=== PATIENT | male | born 1995 | race Caucasian/White ===

== ENCOUNTER 2019-08-05 19:32 | Observation (INO) ==
[2019-08-05] MEDS ORDERED: SODIUM CHLORIDE 0.9% 1000ML 1,000 ML IV ONE (19:40)
[2019-08-05] MEDS ORDERED: KETOROLAC TROMETHAMINE 15 MG/ML VIAL IV STA (19:51)
[2019-08-05 20:26] LABS: Basophils # (auto) 0.03 K/uL (0-0.2); Basophils % (auto) 0.2 %; Eosinophils # (auto) 0.03 K/uL (0-0.5); Eosinophils % (auto) 0.2 %; Hematocrit (blood only) 44.5 % (42-52); Hemoglobin 16.1 g/dL (14.0-18.0); Immature Granulocytes # (auto) 0.04 K/uL (0.00-0.02); Immature Granulocytes % (auto) 0.3 %; Lymphocytes # (auto) 1.28 K/uL (1.2-3.4); Lymphocytes % (auto) 8.7 %; Mean Corpuscular Hemoglobin 31.2 pg (25-34); Mean Corpuscular Hgb Conc 36.2 g/dL (32-36); Mean Corpuscular Volume 86.2 fL (80-100); Mean Platelet Volume 9.1 fL (7.4-10.4); Monocytes % (auto) 7.5 %; Neutrophils # (auto) 12.16 K/uL (1.4-6.5); Neutrophils % (auto) 83.1 %; Platelet Count 259 K/uL (130-400); RDW Coefficient of Variation 12.6 % (11.5-14.5); RDW Standard Deviation 40.1 fL (36.4-46.3); Red Blood Count 5.16 M/uL (4.7-6.1); White Blood Count 14.64 K/uL (4.8-10.8)
[2019-08-05 20:27] LABS: iSTAT Creatinine 0.7 mg/dl (0.6-1.3); iSTAT Hemoglobin 15.6 g/dl (14.0-18.0); iSTAT Ionized Calcium 1.14 mmol/l (1.12-1.32); iSTAT Potassium 3.5 mEq/L (3.3-5.0)
[2019-08-05 20:31] LABS: Albumin Level 4.6 gm/dl (3.4-5.0); BUN Creatinine Ratio 12.1 (10-20); Calcium 9.4 mg/dl (8.5-10.1); Creatinine Clr Calc Pharmacy 140.3 ml/min; Est GFR (African American) 143.7; Potassium 3.5 mmol/L (3.5-5.1)
[2019-08-05] MEDS ORDERED: IOVERSOL 100ml IV PRN (20:33)
[2019-08-05 20:34] LABS: Albumin Globulin Ratio 1.2 (0.9-2); Bilirubin,Total 1.4 mg/dl (0.2-1); Globulin 3.9 gm/dl (2.5-4.0); Total Protein 8.5 gm/dl (6.4-8.2)
--- NOTE | 2019-08-05 20:42 | CT Scan Report ---
CT abd pelvis IV con only CLINICAL HISTORY: RLQ pain, nausea, decreased appetite COMPARISON STUDY: None. TECHNIQUE: The patient was scanned in a dynamic helical fashion during intravenous administration of 93 cc of Optiray 320. A dose lowering technique was utilized adhering to the principles of ALARA. CT DOSE: 274.09 mGy.cm FINDINGS: Lower chest: The heart is normal in size and configuration, without pericardial effusion. The lung ba ses and pleural spaces are clear. Liver: The contrast-enhanced liver is normal in size, contour, and attenuation. There is no intrahepa tic biliary ductal dilatation. The hepatic veins and portal veins are patent. Gallbladder: Unremarkable. Spleen: Normal in size and attenuation. Pancreas: Unremarkable. Adrenal glands: Unremarkable. Kidneys: There is symmetric renal cortical enhancement. The kidneys are normal in size without hydron ephrosis. Bowel: There are no transition zones to indicate bowel obstruction. There is no evidence of acute div erticulitis. There is a dilated fluid-filled appendix with periappendiceal stranding, and trace peria ppendiceal fluid.. The findings are indicative of acute appendicitis. Peritoneum: There is trace free pelvic fluid. There is no free intraperitoneal air. Vasculature: The abdominal aorta is normal in course and caliber. Adenopathy: None. Pelvic viscera: The bladder, and pelvic viscera are unremarkable. Skeletal structures: No destructive osseous lesions are seen. IMPRESSION: 1. Dilated fluid-filled appendix with periappendiceal stranding and trace periappendiceal fluid. The findings are indicative of acute appendicitis and surgical consultation is recommended. Electronically signed by: Leroy Springer M.D. 08/05/2019 8:39 PM
[2019-08-05 21:03] LABS: Appearance Urine Clear (Clear); Bilirubin Urine Negative (Negative); Blood Urine Negative (Negative); Color Urine Yellow; Glucose Urine UA Negative (Negative); Ketones Urine Negative (Negative); Leukocyte Esterase Urine Negative (Negative); Nitrite Urine Negative (Negative); Protein Urine Negative (Negative); Specific Gravity Urine 1.015 (1.000-1.030); Urobilinogen Urine Negative (Negative); pH Urine 8.5 (4.5-7.5)
[2019-08-05] MEDS ORDERED: cefOXitin 2,000 MG/60 ML BAG IV STA (21:12)
--- NOTE | 2019-08-05 21:33 | Surgery Progress Note ---
Date of Service August 05, 2019 Assessment & Plan (1) Acute appendicitis with localized peritonitis: 23 y/o male with acute uncomplicated appendicitis. Last ate solid food just prior to arrival, anesthesia recommends waiting 8 hours. Plan to admit patient for observation, plan for appendectomy tomorrow. Patient was not examined, full consult to follow. admit to med surg for observation cefoxitin q6h npo ivf iv acetaminophen, morphine prn pain discussed with ed provider, anesthesia, and assistant professor of nursing Results & Data Vital Signs (Past 12 Hours) Vital Signs Temp Pulse Pulse Resp BP BP Pulse Ox 08/05/19 19:55 72 13 126/73 98 08/05/19 19:35 37.0 C 83 18 142/81 H 100 PG Care Time/CCT Total # of Minutes Spent Total Time Spent with Patient: Total time spent is greater than 50% in coordination of care (as documented) at patient's floor/unit and/or counseling patient:
[2019-08-05] MEDS ORDERED: ONDANSETRON INJ 2 MG/ML 2 ML VIAL IV PRN (22:13)
[2019-08-05] MEDS ORDERED: MoRPHine SULFATE 4 MG/ML 1 ML CARP\\VIAL IV PRN (22:13)
[2019-08-05] MEDS ORDERED: DiphenhydrAMINE HCL 50 MG/ML VIAL IV PRN (22:13)
[2019-08-05] MEDS ORDERED: ACETAMINOPHEN 1,000 MG/100 ML VIAL IV PRN (22:13)
[2019-08-05] MEDS ORDERED: MoRPHine SULFATE 2 MG/ML CARP IV PRN (22:13)
--- NOTE | 2019-08-05 23:15 | Emergency Department Note ---
Entered by Rosales James acting as a scribe for History of Present Illness General Chief complaint: Abdominal Pain Stated complaint: RIGHT SIDED ABD PAIN Time Seen by Provider: 08/05/19 19:40 Source: patient History of Present Illness Onset (ago): hour(s) (this morning) Location: abdomen Severity: severe Pain Consistency: + constant Maximum Pain Intensity: 2 Associated symptoms: + denies other symptoms (vomiting, fevers) and + other (decreased appetite, intermittent nausea) The patient is a 23 y/o male who presents to the ED w/ CC of constant abdominal pain beginning this morning. The patient states when his symptoms started, they were severe and on his left upper abdomen. He reports he took a nap today, and when he woke up his symptoms were better but had moved to his right lower abdomen. The patient notes he went to [employer] today and was found to have microscopic blood in his urine. He reports he was told to come to the ED for further testing. He states he woke up today and felt constipated and bloated. The patient reports he normally moves his bowels everyday, but he has yet to move his bowels today. He notes he has not had much of an appetite today, and he has been intermittently nauseous. The patient states he still has his appendix and denies a history of kidney stones. He also denies fevers, vomiting, and current nausea. The patient reports he does not take prescribed medication daily, and he takes a vitamin supplement daily. Home Medications Home Medications Medication Instructions Recorded Confirmed Type multivitamin 1 tab PO DAILY 08/05/19 08/05/19 History salicylic acid [Acne Wash] 1 applic TOPICAL DAILY 08/05/19 08/05/19 History Allergies Allergy/AdvReac Type Severity Reaction Status Date / Time No Known Allergies Allergy Verified 08/05/19 19:55 Past Med/Surg History Medical History No pertinent past medical history Surgical History No pertinent past surgical history Family History Other No pertinent family history Social History Preferred Language: Azeri Communication Ability: Effective [employer] Required: No Beliefs That Will Affect Care: None Current Living Situation: Other Current Living Situation Comment: with brother Feels Safe at Home: No Safety Concerns: Feels Safe At This Time Smoking Status: Never smoker Hx Alcohol Use: Yes Alcohol type: beer, wine and hard liquor Hx Substance Use: No Review of Systems See HPI for pertinent positives & negatives. and A total of 10 systems reviewed and were otherwise negative Physical Exam Vital Signs Vital Signs - 24 hr 08/05/19 19:35 08/05/19 19:55 Temperature 37.0 C Temperature Source Oral Pulse Rate 83 Pulse Rate [Apical] 72 Pulse Strength Normal Respiratory Rate 18 13 Respiratory Effort / Characteristics Non-Labored Spontaneous Respiratory Depth Normal Respiratory Pattern Regular Blood Pressure 142/81 H Blood Pressure [Left Arm] 126/73 Blood Pressure Mean 101 Blood Pressure Mean [Left Arm] 90 Blood Pressure Position Sitting Pulse Oximetry 100 98 Oxygen Delivery Method Room Air Room Air Sepsis Recent Fever Within 48 Hours No Sepsis New/Unexplained Change in Mental Status No Sepsis Action Taken by Nursing No Action Required GENERAL: Awake, alert, well-appearing, in no distress HENT: Normocephalic, atraumatic. Oropharynx with dry mucous membranes and otherwise unremarkable. EYES: Normal conjunctiva. Sclera non-icteric. NECK: Supple. No nuchal rigidity. FROM. No JVD. RESPIRATORY: CTAB CARDIAC: Regular rate, normal rhythm. Extremities warm and well perfused. Pulses equal. ABDOMEN: Soft, non-distended. Mild right lower quadrant tenderness to palpation over McBurney's point. No rebound or guarding. No masses. RECTAL: Deferred. MUSCULOSKELETAL: Chest examination reveals no tenderness. The back is symmetrical on inspection without obvious abnormality. There is no CVA tenderness to palpation. No joint edema. LOWER EXTREMITIES: Calves are equal size bilaterally and non-tender. No edema. No discoloration. NEURO: Normal sensorium. No sensory or motor deficits noted. SKIN: No rash or jaundice noted. Course Course 1944: Past medical records reviewed. The patient was evaluated in room C03. A complete history and physical exam was performed. 2102: I discussed the patient's case with Dr. Leal, General Surgery. 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 2110: Upon reevaluation, the patient is resting comfortably. I discussed laboratory and radiographic results with him. He verbalized agreement of the treatment plan. The patient will be evaluated for further management and care. Administered Medications Discontinued Medications Sodium Chloride (Nss 1000ml) 1,000 mls @ 999 mls/hr IV .Q1H1M ONE Stop: 08/05/19 20:40 Last Infusion: 08/05/19 21:06 Dose: 0 mls/hr Documented by: [id number] Admin: 08/05/19 20:05 Dose: 999 mls/hr Documented by: [id number] Cefoxitin Sodium (Mefoxin) 2,000 mg in 60 mls @ 100 mls/hr IV NOW STA Stop: 08/05/19 21:47 Last Infusion: 08/05/19 22:17 Dose: 0 mls/hr Documented by: [id number] Admin: 08/05/19 21:31 Dose: 100 mls/hr Documented by: [id number] Ioversol (Optiray 320 100ml) 93 ml IV ONCE PRN PRN Reason: Interaction Checking Stop: 08/09/19 20:32 Last Admin: 08/05/19 20:34 Dose: 93 ml Documented by: [id number] Ketorolac Tromethamine (Toradol) 15 mg IV NOW STA Stop: 08/05/19 19:52 Last Admin: 08/05/19 22:17 Dose: Not Given Documented by: [id number] Medical Decision Making Differential Diagnosis Differential diagnoses includes but is not limited to gastritis, peptic ulcer disease, GERD, gallbladder disease, pancreatitis, small bowel obstruction, acute coronary syndrome, pericarditis, ischemic bowel, irritable bowel disease, irritable bowel syndrome, appendicitis, diverticulitis, malignancy, hernia, urinary tract infection, torsion, perforation, trauma, infectious. Medical Records Attestation: I reviewed the patient's medical records. Home Medications Current Medication List: was personally reviewed by me Laboratory Data Attestation: I reviewed the patient's lab results. Result diagrams: 08/05/19 20:04 08/05/19 20:04 Lab Results 08/05/19 08/05/19 08/05/19 Range/Units 20:04 20:04 20:12 WBC 14.64 H (4.8-10.8) K/uL RBC 5.16 (4.7-6.1) M/uL Hgb 16.1 (14.0-18.0) g/dL POC Hgb 15.6 (14.0-18.0) g/dl Hct 44.5 (42-52) % POC Hct 46 (42-52) % MCV 86.2 (80-100) fL MCH 31.2 (25-34) pg MCHC 36.2 H (32-36) g/dL RDW Std Deviation 40.1 (36.4-46.3) fL RDW Coeff of Jennifer 12.6 (11.5-14.5) % Plt Count 259 (130-400) K/uL MPV 9.1 (7.4-10.4) fL Immature Gran % (Auto) 0.3 % Neut % (Auto) 83.1 % Lymph % (Auto) 8.7 % [place] % (Auto) 7.5 % Eos % (Auto) 0.2 % Baso % (Auto) 0.2 % Immature Gran # (Auto) 0.04 H (0.00-0.02) K/uL Neut # (Auto) 12.16 H (1.4-6.5) K/uL Lymph # (Auto) 1.28 (1.2-3.4) K/uL [place] # (Auto) 1.10 H (0.11-0.59) K/uL Eos # (Auto) 0.03 (0-0.5) K/uL Baso # (Auto) 0.03 (0-0.2) K/uL POC Sodium 141 (135-144) mEq/L Sodium 139 (136-145) mmol/L POC Potassium 3.5 (3.3-5.0) mEq/L Potassium 3.5 (3.5-5.1) mmol/L POC Chloride 103 (101-112) mEq/L Chloride 105 (98-107) mmol/L Carbon Dioxide 27 (21-32) mmol/L POC Total CO2 26 (24-31) mEq/l Anion Gap 8.0 (3-11) POC Anion Gap 17.0 (16-25) mmol/L POC BUN 10 (7-18) mg/dl BUN 10 (7-18) mg/dl Creatinine 0.86 (0.6-1.4) mg/dl POC Creatinine 0.7 (0.6-1.3) mg/dl Est Cr Clr Drug Dosing 140.3 ml/min Est GFR ( Amer) 143.7 Est GFR (Non-Af Amer) 124.0 BUN/Creatinine Ratio 12.1 (10-20) Glucose 93 (70-99) mg/dl POC Glucose (other) 94 (70-99) mg/dl Calcium 9.4 (8.5-10.1) mg/dl POC Ioniz Calcium [place] 1.14 (1.12-1.32) mmol/l Total Bilirubin 1.4 H (0.2-1) mg/dl AST 15 (15-37) U/L ALT 16 (12-78) U/L Alkaline Phosphatase 75 (45-117) U/L Total Protein 8.5 H (6.4-8.2) gm/dl Albumin 4.6 (3.4-5.0) gm/dl Globulin 3.9 (2.5-4.0) gm/dl Albumin/Globulin Ratio 1.2 (0.9-2) Lipase 44 L (73-393) U/L Imaging Data Radiologist's Impression: Radiology results as stated below per my review and the radiologist's interpretation: CT abd pelvis IV con only CLINICAL HISTORY: RLQ pain, nausea, decreased appetite COMPARISON STUDY: None. TECHNIQUE: The patient was scanned in a dynamic helical fashion during intraveno us administration of 93 cc of Optiray 320. A dose lowering technique was utilized adhering to the principles of ALARA. CT DOSE: 274.09 mGy.cm FINDINGS: Lower chest: The heart is normal in size and configuration, without pericardial effusion. The lung bases and pleural spaces are clear. Liver: The contrast-enhanced liver is normal in size, contour, and attenuation. There is no intrahepatic biliary ductal dilatation. The hepatic veins and portal veins are patent. Gallbladder: Unremarkable. Spleen: Normal in size and attenuation. Pancreas: Unremarkable. Adrenal glands: Unremarkable. Kidneys: There is symmetric renal cortical enhancement. The kidneys are normal in size without hydronephrosis. Bowel: There are no transition zones to indicate bowel obstruction. There is no evidence of acute diverticulitis. There is a dilated fluid-filled appendix with periappendiceal stranding, and trace periappendiceal fluid.. The findings are indicative of acute appendicitis. Peritoneum: There is trace free pelvic fluid. There is no free intraperitoneal air. Vasculature: The abdominal aorta is normal in course and caliber. Adenopathy: None. Pelvic viscera: The bladder, and pelvic viscera are unremarkable. Skeletal structures: No destructive osseous lesions are seen. IMPRESSION: 1. Dilated fluid-filled appendix with periappendiceal stranding and trace periappendiceal fluid. The findings are indicative of acute appendicitis and surgical consultation is recommended. Electronically signed by: Leroy Springer M.D. 08/05/2019 8:39 PM Blood Pressure Blood Pressure Findings: Normal blood pressure Blood Pressure Disposition: did not require urgent referral MDM Narrative The patient is a pleasant 23-year-old gentleman who presents emergency department with worsening right lower quadrant pain that began today but initially presented as generalized abdominal pain and periumbilical bloating that worsened throughout the day per hpi. Patient reports intermittent nausea and decreased appetite throughout the day. Denies any fevers or vomiting. Patient was seen in urgent care and referred to the emergency department. On arrival the patient is no acute distress, afebrile stable vital signs. On exam patient has mild right lower quadrant tenderness over McBurney's point. There is no guarding or rebound. WBC 14.6. With neutrophil predominance. Otherwise H/H and platelets within normal limits. Chemistry without acidosis. Elect lites and LFTs unremarkable. UA negative for infection. CT abdomen pelvis was performed and demonstrated dilated fluid-filled appendix with periappendiceal stranding and trace periappendiceal fluid, which is suggestive of acute appendicitis. Case was discussed with Dr. Leal, general surgery on-call. Given the patient ate solid foods in the form of chickpea crisps just prior to arrival likely will admit the patient for plan for OR in the morning. Patient was ordered for IV cefoxitin. Patient was updated on plan and he was agreeable. Impression & Plan Acute appendicitis, Leukocytosis, Right lower quadrant abdominal pain Discharge Plan Visit Data *Final* Discharge Date/Time: 08/05/19 21:46 Chief Complaint: Abdominal Pain Stated Complaint: RIGHT SIDED ABD PAIN ED Provider: Deepak Hylton Discharge Problem: Acute appendicitis, Leukocytosis, Right lower quadrant abdominal pain Patient Disposition: Admitted As Inpatient Discharge Instructions Interventions: ED Discharge Assessment Last Done: 08/05/19 21:46 Discharge Problem: Acute appendicitis Qualifiers: Acute appendicitis type: unspecified acute appendicitis type Qualified Code(s): K35.80 - Unspecified acute appendicitis The scribe's documentation has been prepared under my direction and personally reviewed by me in its entirety. I confirm that the note above accurately reflects all work, treatment, procedures, and medical decision making performed by me.
[2019-08-05] MEDS: LACTATED RINGER'S 1,000 ML IV SCH (23:25)
[2019-08-06] MEDS ORDERED: cefOXitin 2,000 MG in DEXTROSE 5% 50 ML IV SCH (04:00)
[2019-08-06] MEDS: LACTATED RINGER'S 1,000 ML IV SCH (04:59)
[2019-08-06] MEDS ORDERED: ONDANSETRON INJ 2 MG/ML 2 ML VIAL ONE (06:46)
[2019-08-06] MEDS ORDERED: PROPOFOL IV EMULSION 10 MG/ML 20 ML VIAL IV ONE (06:46)
[2019-08-06] MEDS ORDERED: LIDOCAINE HCL 2% 2 ML VIAL/AMP(20MG/ML) INFIL ONE (06:46)
[2019-08-06] MEDS ORDERED: LARYING-O-JET KIT (LTA) ONE (06:46)
[2019-08-06] MEDS ORDERED: DEXAMETHASONE SOD INJ 4 MG/ML VIAL ONE (06:46)
[2019-08-06] MEDS ORDERED: ROCURONIUM BROMIDE 10 MG/ML 5 ML VIAL ONE (06:46)
[2019-08-06] MEDS ORDERED: NEOSTIGMINE METHYLSULFATE 5 MG/5 ML SYR ONE (06:47)
[2019-08-06] MEDS ORDERED: MIDAZOLAM HCL 1 MG/ML 2ML VIAL ONE (06:47)
[2019-08-06] MEDS ORDERED: GLYCOPYRROLATE 0.2 MG/ML VIAL ONE (06:47)
[2019-08-06] MEDS ORDERED: fentaNYL citrate 100 MCG/2 ML VIAL ONE (06:47)
[2019-08-06] MEDS ORDERED: BUPIVACAINE 0.5 % 5 MG/1 ML MPF 30ML VIAL ONE (07:00)
[2019-08-06] MEDS ORDERED: fentaNYL citrate 100 MCG/2 ML VIAL IV PRN (07:01)
[2019-08-06] MEDS ORDERED: ePHEDrine sulfate 50 MG/ML AMP IV PRN (07:01)
[2019-08-06] MEDS ORDERED: ONDANSETRON INJ 2 MG/ML 2 ML VIAL IV PRN (07:01)
[2019-08-06] MEDS ORDERED: HYDROmorphone INJ 1 MG/ML SYRINGE IV PRN (07:01)
[2019-08-06] MEDS ORDERED: ATROPINE SULFATE 0.1 MG/ML 10ML SYR IV PRN (07:01)
--- NOTE | 2019-08-06 07:11 | Anesthesiology Consultation ---
Date of Service August 06, 2019 Assessment & Plan (1) Encounter for pre-operative examination: Chart Review Chart Review: Acceptable Risk for Surgery and Patient NOT seen in Pre Admission Testing Consults Requested none History Surgery Operation Date: 08/06/19 07:15 Proposed Procedures p Laparoscopic Appendectomy - Wilfred Leal DO, MARY Height/Weight Height: 5 ft 10 in Weight: 73.2 kg Allergies Allergy/AdvReac Type Severity Reaction Status Date / Time No Known Allergies Allergy Verified 08/05/19 19:55 Medications Home Medications Medication Instructions Recorded Confirmed Last Taken multivitamin 1 tab PO DAILY 08/05/19 08/05/19 08/05/19 salicylic acid [Acne Wash] 1 applic TOPICAL DAILY 08/05/19 08/05/19 Unknown Active Medications Generic Name Dose Route Start Last Admin Trade Name Freq PRN Reason Stop Dose Admin Cefoxitin Sodium 2,000 mg/ 60 mls @ 100 mls/hr 08/06/19 04:00 08/06/19 05:37 Dextrose IV 08/16/19 03:59 Infused Q6H NEHA Infusion Lactated Ringer's 1,000 mls @ 125 mls/hr 08/05/19 22:13 08/06/19 05:37 Lr IV 09/04/19 22:12 125 mls/hr .Q8H NEHA Infusion NPO Date Last Intake of Fluids: 08/05/19 Time Last Intake of Fluids: 20:00 Date Last Intake of Solids: 08/05/19 Time Last Intake of Solids: 20:00 Past Medical History Medical History No pertinent past medical history Exercise / Class Metabolic Activity II 4-5 Yardwork/Stairs/Walk up hill Past Family History Family History Other No pertinent family history Past Surgical History Surgical History No pertinent past surgical history Past Anesthesia History No Hx of Anesthesia Complications and No Family Hx of Anesthesia Complications History of PONV No Hx of PONV and No Hx of Motion Sickness Social History Smoking Status: Never smoker Hx Alcohol Use: Yes Alcohol type: beer, wine and hard liquor alcohol intake frequency: holidays/special occasions only Hx Substance Use: No Physical Exam Vital Signs Last Vital Signs Temp 37.1 C 08/06/19 06:45 Pulse 70 08/06/19 06:45 Resp 16 08/06/19 06:45 BP 109/66 08/06/19 06:45 Pulse Ox 97 08/06/19 06:45 Testing Laboratory Results 08/05/19 20:04 08/05/19 20:04 Urine Color Yellow 08/05/19 Unknown Urine Appearance Clear (Clear) 08/05/19 Unknown Urine pH 8.5 (4.5-7.5) H 08/05/19 Unknown Ur Specific [place] 1.015 (1.000-1.030) 08/05/19 Unknown Urine Protein Negative (Negative) 08/05/19 Unknown Urine Glucose (UA) Negative (Negative) 08/05/19 Unknown Urine Ketones Negative (Negative) 08/05/19 Unknown Urine Nitrite Negative (Negative) 08/05/19 Unknown Ur Leukocyte Esterase Negative (Negative) 08/05/19 Unknown 08/05/19 20:12 POC Glucose (other) 94
--- NOTE | 2019-08-06 07:34 | History & Physical Report ---
Date of Service August 06, 2019 Assessment & Plan (1) Acute appendicitis with localized peritonitis: 23-year-old male with acute nonperforated appendicitis Plan for laparoscopic appendectomy The risk of the procedure were discussed to include but not limited to bleeding, infection, open surgery, normal appendix, damage to surrounding structures, need for future or more extensive surgery, abscess formation, and the risk of anesthesia Patient is on antibiotics Potential discharge later this afternoon Wound care instructions and activity restrictions reviewed postoperatively The diagnosis, details of the procedure and recovery, and plan of care discussed the patient, all questions were answered, the patient expressed understanding and agrees with the plan of care as stated Present on Admission?: Yes History of Present Illness Primary Care Provider: NO PCP 23-year-old male presented overnight with periumbilical abdominal pain that migrated to the right lower quadrant. He was initially seen at urgent care and advised to report to the ER as they were concerned that it was appendicitis. On the way over he stopped and ate a bag of chips, and then presented to the emergency department where CT scan revealed a nonperforated appendicitis. Due to the fact that he had not been n.p.o. for greater than 6 hours, he was admitted overnight and placed on antibiotics. He is never had symptoms like this before. He notes that he still having tenderness in the right lower quadrant. No personal or family history of Crohn's or ulcerative colitis. Allergies Allergy/AdvReac Type Severity Reaction Status Date / Time No Known Allergies Allergy Verified 08/05/19 19:55 Home Medications Home Medications Medication Instructions Recorded Confirmed Type multivitamin 1 tab PO DAILY 08/05/19 08/05/19 History salicylic acid [Acne Wash] 1 applic TOPICAL DAILY 08/05/19 08/05/19 History Past Med/Surg History Medical History No pertinent past medical history Surgical History No pertinent past surgical history Family History Other No pertinent family history Social History Preferred Language: Kiswahili Communication Ability: Effective Refrigeration Lead Required: No Beliefs That Will Affect Care: None Current Living Situation: Other Current Living Situation Comment: with brother Feels Safe at Home: No Safety Concerns: Feels Safe At This Time Smoking Status: Never smoker Hx Alcohol Use: Yes Alcohol type: beer, wine and hard liquor Hx Substance Use: No Physical Exam Constitutional: WD/WN, vitals as above Eyes: PERRL, conjunctivae normal, anicteric sclerae ENMT: external ear and nose normal, oropharynx normal Neck: trachea midline, no thyromegaly Respiratory: normal respiratory effort, lungs clear to auscultation Cardiovascular: RRR, no murmur, no edema Gastrointestinal (Abdomen): Percussion/Palpation: + abdomen tender (Tenderness to palpation in the right lower quadrant with localized guarding), + guarding and abdomen soft; abdomen not rigid, no hepatosplenomegaly and no hernia Musculoskeletal: no cyanosis or clubbing, extremities motor strength 5/5 Skin: no rashes, warm and dry Neurologic: PERRL, EOMI, accommodation nl, no face palsy, no dysarthria Psychiatric: A+Ox3, euthymic affect Lymphatic: no cervical or axillary lymphadenopathy Results & Data Vital Signs (Past 12 Hours) Vital Signs Temp Pulse Pulse Resp BP BP Pulse Ox 08/06/19 06:45 37.1 C 70 16 109/66 97 08/05/19 21:48 37 C 72 16 135/78 97 08/05/19 21:30 71 16 118/63 99 08/05/19 19:55 72 13 126/73 98 08/05/19 19:35 37.0 C 83 18 142/81 H 100 Laboratory Results Laboratory Results - last 24 hr 08/05/19 08/05/19 08/05/19 20:04 20:04 20:12 WBC 14.64 H RBC 5.16 Hgb 16.1 POC Hgb 15.6 Hct 44.5 POC Hct 46 MCV 86.2 MCH 31.2 MCHC 36.2 H RDW Std Deviation 40.1 RDW Coeff of Jennifer 12.6 Plt Count 259 MPV 9.1 Immature Gran % (Auto) 0.3 Neut % (Auto) 83.1 Lymph % (Auto) 8.7 Cameron % (Auto) 7.5 Eos % (Auto) 0.2 Baso % (Auto) 0.2 Immature Gran # (Auto) 0.04 H Neut # (Auto) 12.16 H Lymph # (Auto) 1.28 Cameron # (Auto) 1.10 H Eos # (Auto) 0.03 Baso # (Auto) 0.03 POC Sodium 141 Sodium 139 POC Potassium 3.5 Potassium 3.5 POC Chloride 103 Chloride 105 Carbon Dioxide 27 POC Total CO2 26 Anion Gap 8.0 POC Anion Gap 17.0 POC BUN 10 BUN 10 Creatinine 0.86 POC Creatinine 0.7 Est Cr Clr Drug Dosing 140.3 Est GFR ( Amer) 143.7 Est GFR (Non-Af Amer) 124.0 BUN/Creatinine Ratio 12.1 Glucose 93 POC Glucose (other) 94 Calcium 9.4 POC Ioniz Calcium Tosha 1.14 Total Bilirubin 1.4 H AST 15 ALT 16 Alkaline Phosphatase 75 Total Protein 8.5 H Albumin 4.6 Globulin 3.9 Albumin/Globulin Ratio 1.2 Lipase 44 L Urine Color Urine Appearance Urine pH Ur Specific [place] Urine Protein Urine Glucose (UA) Urine Ketones Urine Blood Urine Nitrite Urine Bilirubin Urine Urobilinogen Ur Leukocyte Esterase 08/05/19 Unknown WBC RBC Hgb POC Hgb Hct POC Hct MCV MCH MCHC RDW Std Deviation RDW Coeff of Jennifer Plt Count MPV Immature Gran % (Auto) Neut % (Auto) Lymph % (Auto) Cameron % (Auto) Eos % (Auto) Baso % (Auto) Immature Gran # (Auto) Neut # (Auto) Lymph # (Auto) Cameron # (Auto) Eos # (Auto) Baso # (Auto) POC Sodium Sodium POC Potassium Potassium POC Chloride Chloride Carbon Dioxide POC Total CO2 Anion Gap POC Anion Gap POC BUN BUN Creatinine POC Creatinine Est Cr Clr Drug Dosing Est GFR ( Amer) Est GFR (Non-Af Amer) BUN/Creatinine Ratio Glucose POC Glucose (other) Calcium POC Ioniz Calcium Tosha Total Bilirubin AST ALT Alkaline Phosphatase Total Protein Albumin Globulin Albumin/Globulin Ratio Lipase Urine Color Yellow Urine Appearance Clear Urine pH 8.5 H Ur Specific [place] 1.015 Urine Protein Negative Urine Glucose (UA) Negative Urine Ketones Negative Urine Blood Negative Urine Nitrite Negative Urine Bilirubin Negative Urine Urobilinogen Negative Ur Leukocyte Esterase Negative Diagnostic Findings CT abd pelvis IV con only CLINICAL HISTORY: RLQ pain, nausea, decreased appetite COMPARISON STUDY: None. TECHNIQUE: The patient was scanned in a dynamic helical fashion during intravenous administration of 93 cc of Optiray 320. A dose lowering technique was utilized adhering to the principles of ALARA. CT DOSE: 274.09 mGy.cm FINDINGS: Lower chest: The heart is normal in size and configuration, without pericardial effusion. The lung bases and pleural spaces are clear. Liver: The contrast-enhanced liver is normal in size, contour, and attenuation. There is no intrahepatic biliary ductal dilatation. The hepatic veins and portal veins are patent. Gallbladder: Unremarkable. Spleen: Normal in size and attenuation. Pancreas: Unremarkable. Adrenal glands: Unremarkable. Kidneys: There is symmetric renal cortical enhancement. The kidneys are normal in size without hydronephrosis. Bowel: There are no transition zones to indicate bowel obstruction. There is no evidence of acute diverticulitis. There is a dilated fluid-filled appendix with periappendiceal stranding, and trace periappendiceal fluid.. The findings are indicative of acute appendicitis. Peritoneum: There is trace free pelvic fluid. There is no free intraperitoneal air. Vasculature: The abdominal aorta is normal in course and caliber. Adenopathy: None. Pelvic viscera: The bladder, and pelvic viscera are unremarkable. Skeletal structures: No destructive osseous lesions are seen. IMPRESSION: 1. Dilated fluid-filled appendix with periappendiceal stranding and trace periappendiceal fluid. The findings are indicative of acute appendicitis and surgical consultation is recommended. Code Status & VTE Plan VTE Prophylaxis Plan VTE Prophylaxis will be ordered: Yes PG Care Time/CCT Total # of Minutes Spent Total Time Spent with Patient: Total time spent is greater than 50% in coordination of care (as documented) at patient's floor/unit and/or counseling patient:
--- NOTE | 2019-08-06 08:25 | Operative Report ---
PG Post Operative Report Pre & Post Diagnosis Operation Date: 08/06/19 07:15 Pre-Op Diagnosis: Acute Appendicitis Post-Op Diagnosis: Acute Appendicitis I identified the patient and participated in the time-out.: Yes Procedure Operation Date: 08/06/19 07:15 Actual Procedures p Laparoscopic Appendectomy(Not Applicable) - Wilfred Leal DO, FACS Surgeon Wilfred Leal DO, FACS Senior Audit Manager Christin Meredith Estimated Blood Loss 3 Findings Consistent with Post-Op Diagnosis Acute, nonperforated appendicitis. Specimens Appendix Anesthesia Type General Complications none Disposition Accompanied Patient To Recovery: No Disposition: Recovery Room Indications 23-year-old male presents the emergency department yesterday with signs and symptoms of acute appendicitis. He was not n.p.o. therefore he was admitted and placed on antibiotics. Plan for laparoscopic appendectomy this morning. The risks of the procedure were discussed, all questions were answered, and the patient agreed to proceed with surgery as planned. Description of Procedure The patient was properly identified, consented, and taken to the operating room where he was placed in the supine position. General endotracheal anesthesia was induced. SCDs and a safety belt were placed. Preoperative antibiotics were administered. The patient's abdomen was prepped and draped in the standard sterile fashion. Surgical timeout was performed and all parties were in agreement that this was the correct patient and procedure to be performed and we continued as planned. A curvilinear infraumbilical incision was made with electrocautery and deepened down to the fascia with blunt dissection. The base of the umbilicus was grasped with a Missy and elevated towards the ceiling. An incision was made in the midline fascia with a knife and entry into the peritoneum was confirmed. Stay suture of 0 Vicryl was placed and a Loza trocar was inserted. The abdomen was insufflated with carbon dioxide which the patient tolerated without incident. The laparoscope was inserted and no damage from initial trocar placement was noted, no gross abnormalities were noted within the 4 quadrants the abdomen. 5 mm ports were then placed in the left lower quadrant with care not to damage the epigastric vessels, and in the suprapubic midline with care not to damage the bladder. The patient was placed in Trendelenburg position and rotated towards the left. The small bowel was swept away from the right lower quadrant. The cecum was grasped with an atraumatic grasper exposing the base of the appendix. The appendix was partially retrocecal. The appendix was moderate inflamed and there was no evidence of perforation. There was minimal reactive fluid in the pelvis. The white line of Toldt was mobilized with the harmonic scalpel. A window was created between the base of the appendix and the mesoappendix. A jacobson loaded endoscopic stapler was then used to divide the appendix at its base. The harmonic scalpel was then used to divide the mesoappendix. Hemostasis was good. The appendix was placed in an Endo Catch bag and removed through the umbilical port site. The right lower quadrant and pelvis was irrigated and hemostasis was found to be good. 5 mm trochars were removed under direct visualization and the abdomen was allowed to collapse. The umbilical port site fascia was closed with 0 Vicryl suture. The wound was irrigated, and the skin of all ports was closed with 4-0 Monocryl subcuticular sutures. Dermabond was placed over the wounds. The patient was extubated in the operating room and taken to the PACU where he recovered without apparent incident. All sponge, instrument and needle counts were correct at the conclusion of the procedure. The patient tolerated the procedure well. The physician's department assistant was present and scrubbed for the entire to the case. She was critical in positioning the patient, prepping and draping, retraction and exposure, driving the laparoscope, removal of the appendix, closure the incisions, and placement of the dressings. I attest to the content of the Intraoperative Record and any orders documented therein. Any exceptions are noted below.
[2019-08-06] MEDS ORDERED: OXYCODONE/ACETAMINOPHEN 5mg/325mg TAB PO PRN ×2 (09:41)
[2019-08-06] MEDS ORDERED: LACTATED RINGER'S 1,000 ML IV SCH (09:41)
[2019-08-06] MEDS ORDERED: cefOXitin 2,000 MG in DEXTROSE 5% 50 ML IV ONE (11:00)
--- NOTE | 2019-08-06 13:51 | Anesthesiology Progress Note ---
Date of Service August 06, 2019 Anesthesia Post Procedure Vital Signs Vital Signs: Temp Pulse Pulse Pulse Resp BP BP 08/06/19 12:37 36.6 C 80 16 167/76 H 08/06/19 11:38 79 16 124/67 08/06/19 10:34 64 16 120/71 08/06/19 10:06 65 16 116/74 08/06/19 09:44 36.7 C 58 L 16 112/73 08/06/19 09:20 36.7 C 62 18 110/68 08/06/19 09:10 63 14 115/67 08/06/19 09:00 55 L 13 115/73 08/06/19 08:50 54 L 10 L 111/72 08/06/19 08:44 36.0 C L 69 19 130/71 08/06/19 06:57 37.1 C 65 16 116/65 08/06/19 06:45 37.1 C 70 16 109/66 08/05/19 21:48 37 C 72 16 135/78 08/05/19 21:30 71 16 118/63 08/05/19 19:55 72 13 126/73 08/05/19 19:35 37.0 C 83 18 142/81 H Pulse Ox 08/06/19 12:37 98 08/06/19 11:38 98 08/06/19 10:34 93 08/06/19 10:06 93 08/06/19 09:44 100 08/06/19 09:20 100 08/06/19 09:10 98 08/06/19 09:00 100 08/06/19 08:50 100 08/06/19 08:44 100 08/06/19 06:57 99 08/06/19 06:45 97 08/05/19 21:48 97 08/05/19 21:30 99 08/05/19 19:55 98 08/05/19 19:35 100 Pain Intensity Right Lower Abdomen: Pain Intensity: 3 Throat: Pain Intensity: 2 Transfer of Care Handoff Completed per policy Notes Mental Status: alert / awake / arousable and participated in evaluation Patient Amnestic to Procedure: Yes Nausea / Vomiting: adequately controlled Pain: adequately controlled Airway Patency, RR, SpO2: stable & adequate BP & HR: stable & adequate Hydration State: stable & adequate Anesthetic Complications: no major complications apparent and Pt Satisfied with anesthetic care
--- NOTE | 2019-08-07 10:30 | Discharge Summary ---
Date of Service August 07, 2019 Admission HPI Per Admitting Provider 23-year-old male presented overnight with periumbilical abdominal pain that migrated to the right lower quadrant. He was initially seen at urgent care and advised to report to the ER as they were concerned that it was appendicitis. On the way over he stopped and ate a bag of chips, and then presented to the emergency department where CT scan revealed a nonperforated appendicitis. Due to the fact that he had not been n.p.o. for greater than 6 hours, he was admitted overnight and placed on antibiotics. He is never had symptoms like this before. He notes that he still having tenderness in the right lower felipe drant. No personal or family history of Crohn's or ulcerative colitis. Principal Diagnosis acute appendicitis Discharge Exam awake/alert Respiratory normal respiratory effort Gastrointestinal (Abdomen) Inspection/Auscultation: + abdominal surgical incision (c/d/i with dermabond overtop); abdomen not distended Percussion/Palpation: + abdomen tender (mild chencho-incisionally) and abdomen soft Discharge Data Allergies Allergy/AdvReac Type Severity Reaction Status Date / Time No Known Allergies Allergy Verified 08/05/19 19:55 Consultations 08/05/19 21:12 ED Decision to Admit Stat Procedures Performed Operation Date: 08/06/19 07:15 Actual Procedures p Laparoscopic Appendectomy(Not Applicable) - Wilfred Leal DO, FACS Ordered Studies 08/05/19 19:51 CT abd pelvis IV con only Stat Hospital Course (1) S/P appendectomy: This is a 23y M who presents to the [facility] ED on 08/05/19 with right lower abdominal pain. Workup in the ED revealed a WBC of [address] a/p revealing findings concerning for acute appendicitis. Patient was made NPO with IVF and started on pre-op abx. On the AM of 08/06 the patient was taken to the OR with Dr. Leal for a laparoscopic appendectomy. The patient tolerated the procedure well, see op note for full details. The patient recovered in the PACU and was transferred to the surgical floor in stable condition with a regular diet, prn pain medication, and one more dose of IV abx. Post operatively the patient's pain was well managed, he was ambulating and able to void independently, diet was tolerated, and incisions c/d/i. The patient was deemed stable for discharge to home on 08/06 with instructions to follow up with Dr. Leal in surgery clinic within 1-2 weeks. Total Time Total Time Spent Total Time Spent (In Minutes): 15 Discharge Plan Discharge Items Patient Disposition: Home - Self-Care Reason For Visit: APPENDICITIS Discharge Diagnosis: acute appendicitis Condition on Discharge: Good Activity: Per Instructions section Lifting: No more than 10 pounds Bathing Comment: you may shower tomorrow-08/07/19. no soaking in tubs Exercise/Sports: Wait until after follow-up appointment Driving/Machine Use: do not resume driving while taking narcotics for pain Non-emergency contact: Surgeon Call non-emergency contact if: you have any medication questions, your symptoms worsen, your pain is not controlled, your pain is worsening, your pain is unusual for you, you have a fever, your temperature is above 101.5, your wound has increased redness, your wound has increased drainage and your wound pain has increased Follow-up/Referrals: Wilfred Leal, MARY GAMING [Physician] - (Please call to schedule follow up in clinic within 1-2 weeks.) PCP,NO [Primary Care Provider] - Diet: Regular Addtl Attending Provider Instructions: You may take Tylenol or Ibuprofen over the counter if needed for pain. A prescription for Percocet has been sent to your pharmacy if needed for severe pain. Please note that both Percocet and Tylenol contain Acetaminophen and that you should NOT exceed 4grams of Acetaminophen within a 24hour period. Pending Studies at Discharge: No Visit Report Forms: Smoking Cessation Stand-Alone Forms: [facility], Opioid Pain Management, Work/School Release (Inpt), Smoking Cessation Medications and DC Order Prescriptions: New oxycodone-acetaminophen [Percocet] 5-325 mg tablet 1 - 2 tab PO .every 4-6 hours PRN (Reason: pain, for initial therapy. max 8 per day) Qty: 10 RF: 0 Continued multivitamin Tablet 1 tab PO DAILY RF: 0 Acne Wash 2 % Cleanser 1 applic TOPICAL DAILY RF: 0 Discharge Orders: Discharge Order (Routine); Ordered 08/06/19 Ordered By: Christin Gaston/Other Patient Handouts: Appendectomy After, Appendectomy Laparoscopic Dc Admission Data Admit Date/Time: 08/05/19 21:26 Attending Provider: Wilfred Leal Admit Provider: Wilfred Leal Primary Care Provider: PCP,NO Other Providers: Wilfred Leal Other Interventions: Discharge Summary Assessment (RN) Last Done: 08/06/19 17:19 DC Date/Time DO NOT enter until pt leaves facility: 08/06/19 18:34
== END 2019-08-06 18:34 | disposition home or self-care (01) ==
LOC: 3N 19:32 → ED 19:32 → 3N 21:46
DX: K35.30 Acute appendicitis with localized peritonitis, without perforation or gangrene